=== PATIENT | female | born 1960 | race Caucasian/White ===

== ENCOUNTER 2017-02-09 06:53 | Observation (INO) | payer MEDICARE, BC ==
[2017-02-09] MEDS ORDERED: POVIDONE IODINE 5% (ANTISEPSIS KIT) 4 APPLICATIONS EACH NARE PRN (08:00)
[2017-02-09] MEDS ORDERED: VANCOMYCIN 1000 MG/NS 250 ML (for <70 kg) IV SCH ×2 (08:00)
[2017-02-09] MEDS ORDERED: LACTATED RINGER'S 1000 ML IV PRN (08:00)
[2017-02-09] MEDS ORDERED: INSULIN HUMAN REGULAR 1,000 UNITS/10 ML VIAL SQ PRN (08:00)
[2017-02-09] MEDS ORDERED: METOPROLOL TARTRATE 25 MG TAB PO PRN (08:00)
[2017-02-09] MEDS ORDERED: ceFAZolin 2 GM PREMIX 50 ML IV SCH (08:00)
[2017-02-09] MEDS ORDERED: CHLORHEXIDINE GLUCONATE 2 % 1 PACK (2 CLOTHS) TOPICAL PRN (08:00)
[2017-02-09] MEDS ORDERED: SODIUM CHLORID 0.9% 500 ML IV PRN (08:00)
[2017-02-09] MEDS ORDERED: HYDR-4107 PO (08:04)
[2017-02-09 08:07] VITALS: BP 112/69; PULSE 61; RESP 20; TEMP 98.1; O2SAT 98
[2017-02-09] MEDS ORDERED: CHLORHEXIDINE GLUCONATE 4% SOLN 120 ML BTL TOPICAL SCH (08:15)
[2017-02-09] MEDS ORDERED: ePHEDrine/NS 25 MG/5 ML SYR IV ONE (08:52)
[2017-02-09] MEDS ORDERED: NEOSTIGMINE 3 MG/3 ML SYR IV ONE (08:52)
[2017-02-09] MEDS ORDERED: PROPOFOL 200 MG/20 ML AMP IV ONE (08:52)
[2017-02-09] MEDS ORDERED: ONDANSETRON HCL 4 MG/2 ML VIAL IV PUSH ONE (08:53)
[2017-02-09] MEDS ORDERED: NITROGLYCERIN 1000 MCG/5 ML VIAL IV ONE (08:54)
[2017-02-09] MEDS ORDERED: LACTATED RINGER'S 1000 ML INJ 1,000 ML IV ONE (08:54)
[2017-02-09] MEDS ORDERED: GENTAMICIN SULFATE 80 MG/2 ML VIAL ONE (09:06)
[2017-02-09] MEDS ORDERED: MIDAZOLAM HCL 2 MG/2 ML VIAL ONE (09:07)
[2017-02-09] MEDS ORDERED: Post-op Orders (for Pharmacy) MISC XX ONE (11:30)
[2017-02-09] MEDS ORDERED: HYDR-3366 PO (11:31)
--- NOTE | 2017-02-09 11:33 | PD.OP ---
cc: Jozef Antonio MD Operative Report Date of Surgery: Feb 09, 2017 Preoperative Diagnosis: Right distal humerus fracture Postoperative Diagnosis: Procedure: Open reduction internal fixation right distal humerus supracondylar fracture Anesthesia: Gen. Surgeon: Jozef Antonio Belt Cutter(s): FIOR Quesada PA-C The surgical procedure was assisted by my physician dietitian assistant. My P.A. presence was necessary throughout this case for the manipulation and positioning of the surgical extremity. My P.A. was assisting me throughout the duration of this procedure. The skill set of a physician dietitian assistant was medically necessary to complete this procedure. During the surgical case the surgical forceps fabricator was working at the back table and the physician dietitian assistant was directly assisting me. Operation and Findings: Patient was seen and evaluated preoperatively. Treatment options were discussed regarding right distal humerus fracture including surgical and nonsurgical treatments. After detailed discussion of risk and benefits of procedure patient wishes to proceed with surgery. Risks of surgery include bleeding, infection, nonunion, malunion, painful hardware, loss of motion of shoulder and elbow, weakness and numbness of arm, ulnar nerve injury as well as medical competitions including blood clots stroke and . Patient was brought to operating room and placed on the OR table. GETA was administered by anesthesiologist. Patient was positioned in lateral decubitus position. Extremities were well-padded. Axillary roll was placed. Patient's right arm and shoulder were prepped with alcohol followed by Hibiclens and draped usual sterile fashion. Timeout procedure was performed. IV antibiotics were given prior to incision. A standard posterior approach was utilized. Subcutaneous tissues was dissected with Bovie. The lateral border of the triceps was elevated off of the distal humerus. Fracture site was visualized. Next, the ulnar nerve was identified and protected throughout the procedure. The nerve was intact. The fracture was identified along the medial distal humerus. Soft tissue was removed from the fracture site. Fracture site was cleaned with curettes. At this point the fracture was reduced using fracture tenaculums. Multiplanar fluoroscopy confirmed excellent of fracture. Synthes distal humerus plates were selected. The medial plate was provisionally held the bone with K wires. 3.5 cortical screws were placed to compress plate to bone. Multiple 2.7 locking screws were placed distally. Care was taken to keep screws from penetrating the articular surface. Multiple screws were placed in each side of the fracture. All screws were predrilled and premeasured for appropriate length. Next the lateral plate was placed along the posterior lateral humerus. Plate was provisionally held to bone with K wires. 3.5 cortical screws were used to compress plate to bone. Additional 2.7 locking screws were placed distally. K wires were removed. Final fluoroscopy revealed excellent alignment of fracture with well-placed hardware. Incision was thoroughly irrigated. Fascia was closed with #1 Vicryl , subcutaneous tissues closed with 3-0 Vicryl, and skin was closed with [place]. Sterile dressings were applied. Needle and sponge counts were correct. Patient was placed into a sling, and then transferred to recovery room in stable condition Jozef Antonio MD Feb 09, 2017 11:33
[2017-02-09] MEDS ORDERED: DO NOT ADM ANY ANTICOAGULANT DRUGS PRN (12:05)
[2017-02-09] MEDS ORDERED: *morphine SULFATE 8 MG/ML PERIprocedure ONLY ONE ×2 (12:12→12:22)
[2017-02-09] MEDS ORDERED: fentaNYL CITRATE 250 MCG/5 ML AMP ONE (12:17)
[2017-02-09] MEDS ORDERED: *RESP: ALBUTEROL 2.5 MG/3 ML NEB (PRN) PERIprocedural Use ONLY NEB ONE (12:20)
[2017-02-09] MEDS ORDERED: *MEPERIDINE 25 MG INJ VIAL PERIprocedural Use ONLY ONE (12:36)
--- NOTE | 2017-02-09 13:49 | RADRPT ---
EXAM DATE/TIME: 02/09/2017 10:24 [facility] COMPARISON: No previous studies available for comparison. INDICATIONS : ORIF right elbow fracture. MEDICAL HISTORY : Unobainable. SURGICAL HISTORY : Unobtainable. ENCOUNTER: Initial ACUITY: 1 day PAIN SCORE: Non-responsive. LOCATION: Right elbow. CONCLUSION: Fluoroscopic images during placement of plate and screws along the distal right humer us fixating fractures, near-anatomic. Abiel Narayanan MD on February 09, 2017 at 13:48 Board Certified Radiologist. This report was verified electronically.
[2017-02-09] MEDS: KETOROLAC TROMETHAMINE 30 MG/ML (IVP) VIAL IVP SCH ×2 (14:10→21:31)
[2017-02-09] MEDS: ceFAZolin 2 GM PREMIX 50 ML IV SCH (17:38)
--- NOTE | 2017-02-09 18:13 | EKG ---
Date Performed: 02/09/2017 Time Performed: 07:29:04 PTAGE: 56 years EKG: Sinus rhythm POSSIBLE LEFT ATRIAL ENLARGEMENT POSSIBLE RIGHT VENTRICULAR CONDUCTION DELAY BORDERLINE ECG NO PREVIOUS TRACING DOCTOR: Michael Quintero Interpretating Date/Time 02/09/2017 18:11:46
[2017-02-09] MEDS: ACETAMINOPHEN/HYDROcodone 325 MG/10 MG TAB PO PRN (18:55)
[2017-02-09 20:00] VITALS: BP 119/62; PULSE 78; RESP 15; TEMP 96.9; O2SAT 99
[2017-02-09 23:00] VITALS: BP 108/58; PULSE 76; RESP 15; TEMP 96.7; O2SAT 99
[2017-02-10] MEDS: ceFAZolin 2 GM PREMIX 50 ML IV SCH (01:50)
[2017-02-10] MEDS: ACETAMINOPHEN/HYDROcodone 325 MG/10 MG TAB PO PRN ×5 (01:55→22:01)
[2017-02-10] MEDS: KETOROLAC TROMETHAMINE 30 MG/ML (IVP) VIAL IVP SCH (05:10)
[2017-02-10] MEDS: MORPHINE SULFATE 4 MG/ML INJ IV PUSH PRN ×2 (05:11→10:49)
--- NOTE | 2017-02-10 06:32 | PD.ORT.PN ---
Subjective Subjective Remarks s/p ORIF right distal humerus - POD 1 doing well. pain controlled. nerve block starting to wear off. Objective Vitals Vital Signs Date Time Temp Pulse Resp B/P Pulse Ox O2 Delivery O2 Flow Rate FiO2 02/10/17 06:22 21 02/10/17 06:15 18 02/10/17 05:18 20 02/10/17 03:12 18 02/09/17 23:00 96.7 76 15 108/58 99 02/09/17 20:00 96.9 78 15 119/62 99 02/09/17 16:00 90 20 135/83 100 Nasal Cannula 2 02/09/17 13:15 74 14 139/83 100 Nasal Cannula 2 02/09/17 13:00 97.8 67 14 134/71 100 Nasal Cannula 2 02/09/17 12:45 65 22 156/73 100 Nasal Cannula 3 02/09/17 12:30 82 28 129/82 100 Nasal Cannula 3 02/09/17 12:15 74 15 130/74 94 Nasal Cannula 3 02/09/17 12:03 97.6 71 16 142/84 92 Nasal Cannula 3 02/09/17 08:07 98.1 61 20 112/69 98 I/O 02/09/17 02/09/17 02/09/17 02/10/17 02/10/17 02/10/17 07:00 15:00 23:00 07:00 15:00 23:00 Intake Total 1000 ml 720 ml 240 ml Output Total 150 ml Balance 850 ml 720 ml 240 ml Intake Oral 720 ml 240 ml Other 1000 ml Output Estimated Blood Loss 150 ml # Voids 1 1 # Bowel Movements 0 0 Objective Remarks RUE: dressings clean and dry. intact. +swelling of hand. full sensation to median/ulnar nerve distribution Assessment & Plan Assessment and Plan 1) Right Distal Humerus Fx s/p ORIF - POD 1 -NWB -sling when out of bed -begin OT today for PROM of elbow -daily dressing changes POD 2 with xeroform/4x4/LILLIE -clear for discharge later today if pain controlled and therapy completed -f/u with Kyle or [facility]LA in 2 weeks Donato Larson Feb 10, 2017 06:32
--- NOTE | 2017-02-10 06:33 | HHI.FF ---
Face to Face Verification Diagnosis: (1) Fracture of distal end of humerus Occupational Therapy Right UE Weight Bearing: Non WB Right UE Range of Motion: Passive ROM (elbow) Nursing Dressing Changes: Daily dressing change, Owen wrap, 4x4s, Xeroform I have seen patient Emy Jensen on 02/10/17. My clinical findings support the need for the requested home health care services because: Ltd mobility - disease progression I certify that my clinical findings support that this patient is homebound because: Post-op weakness Donato Larson Feb 10, 2017 06:33
[2017-02-10 08:00] VITALS: BP 103/58; PULSE 75; RESP 18; TEMP 97.6; O2SAT 98
[2017-02-10 10:02] VITALS: O2SAT 98
[2017-02-10 12:00] VITALS: BP 121/81; PULSE 69; RESP 18; TEMP 97.5; O2SAT 100
[2017-02-10] MEDS ORDERED: HYDROmorphone HCL PF 2 MG/ML VIAL IV PUSH ONE (14:15)
[2017-02-10] MEDS ORDERED: HYDROmorphone HCL PF 2 MG/ML VIAL IV PUSH PRN (14:15)
[2017-02-10 16:00] VITALS: BP 113/66; PULSE 78; RESP 18; TEMP 97.6; O2SAT 97
--- NOTE | 2017-02-10 16:56 | RADRPT ---
EXAM DATE/TIME: 02/10/2017 16:14 [facility] COMPARISON: No previous studies available for comparison. INDICATIONS : Right humerus fracture; repair 02/09/17. MEDICAL HISTORY : Right humerus fracture SURGICAL HISTORY : Gastric surgery. Right arm surgery. ENCOUNTER: Initial ACUITY: 1 month PAIN SCORE: 8/10 LOCATION: Right arm. FINDINGS: There is spontaneous flow documented in the brachial, basilic, cephalic, axillary, and subclavian vei ns. The vessels are compressible and augmentation response is documented. No filling defects are se en. The flow is phasic with respiration. Direction of flow in the jugular vein is caudal. CONCLUSION: Normal examination. Lul Weems MD on February 10, 2017 at 16:54 Board Certified Radiologist. This report was verified electronically.
[2017-02-10] MEDS: HYDROmorphone HCL PF 1 MG/ML VIAL IV PUSH PRN (20:06)
[2017-02-10 20:15] VITALS: BP 109/58; PULSE 71; RESP 16; TEMP 97.7; O2SAT 95
[2017-02-11 00:30] VITALS: BP 116/73; PULSE 72; RESP 16; TEMP 96.5; O2SAT 97
[2017-02-11] MEDS: ACETAMINOPHEN/HYDROcodone 325 MG/10 MG TAB PO PRN ×4 (01:16→11:56)
[2017-02-11] MEDS: HYDROmorphone HCL PF 1 MG/ML VIAL IV PUSH PRN (03:28)
--- NOTE | 2017-02-11 06:27 | PD.ORT.PN ---
Subjective Subjective Remarks s/p ORIF right distal humerus - POD 2 doing well. pain better controlled today. pain was out of control yesterday and an ultrasound was ordered. Objective Vitals Vital Signs Date Time Temp Pulse Resp B/P Pulse Ox O2 Delivery O2 Flow Rate FiO2 02/11/17 00:30 96.5 72 16 116/73 97 02/10/17 20:15 97.7 71 16 109/58 95 02/10/17 16:00 97.6 78 18 113/66 97 02/10/17 12:00 97.5 69 18 121/81 100 02/10/17 10:02 98 21 02/10/17 08:00 97.6 75 18 103/58 98 I/O 02/10/17 02/10/17 02/10/17 02/11/17 02/11/17 02/11/17 07:00 15:00 23:00 07:00 15:00 23:00 Intake Total 240 ml 600 ml 480 ml 600 ml Balance 240 ml 600 ml 480 ml 600 ml Intake Oral 240 ml 600 ml 480 ml 600 ml # Voids 1 2 1 3 # Bowel Movements 0 0 0 0 Objective Remarks RUE: dressings clean and dry. intact. +swelling of hand. full sensation to median/ulnar nerve distribution Assessment & Plan Assessment and Plan 1) Right Distal Humerus Fx s/p ORIF - POD 2 -NWB -sling when out of bed -begin OT today for PROM of elbow -daily dressing changes POD 2 with xeroform/4x4/LILLIE. ok to transition to [place] if minimal drainage -clear for discharge later today if pain controlled and therapy completed -f/u with Kyle or MARLA in 2 weeks -DC home today after OT has session with her this AM Donato Larson Feb 11, 2017 06:27
[2017-02-11 08:00] VITALS: BP 115/70; PULSE 77; RESP 18; TEMP 98.7; O2SAT 97
== END 2017-02-11 13:44 | disposition home health service (06) ==
LOC: HSDC 06:53 → HSDI 11:30 → N06A 18:25
PROVIDERS: ADMIT Orthopaedic Surgery Orthopaedic Trauma; ATTEND Orthopaedic Surgery Orthopaedic Trauma
PROC: 0PSG04Z Reposition Left Humeral Shaft with Internal Fixation Device, Open Approach (ICD-10-PCS; principal; 2017-02-09 09:20)
DX: S42.411A Displaced simple supracondylar fracture without intercondylar fracture of right humerus, initial encounter for closed fracture (principal); F17.200 Nicotine dependence, unspecified, uncomplicated; Z01.810 Encounter for preprocedural cardiovascular examination; R60.0 Localized edema
CPT/HCPCS: 01922; 24546; 64418; 73080; 76000; 93005; 93971; 94150; 94664; 97110; 97166; 97535; C1713; G0378; G8987; G8988; J0690; J1170; J1580; J1885; J2175; J2250; J2270; J2405; J2710; J3010; J3370; J7050; J7120; J7613